=== PATIENT | female | born 1955 | race Caucasian/White ===

== ENCOUNTER → 2017-05-01 | Outpatient (CLI) | payer MEDICARE, BC ==
[~2017-05-01] MED LIST: CONTRAST GIVEN MC PRN; IOHEXOL 300 MG/ML 75 ML VIAL. IV ONE
--- NOTE | 2017-05-01 15:13 | RAD ---
Examination: CT angiogram of the chest History: History of shortness of breath, palpitations. Comparison: None available Technique: Axial CT and radiographic images were performed with IV contrast. Coronal and sagittal 3-D MIP reformats are performed PQRS Compliance Statement: One or more of the following individualized dose reduction techniques were utilized for this examination: 1. Automated exposure control 2. Adjustment of the mA and/or kV according to patient size 3. Use of iterative reconstruction technique Findings: The caliber of the aorta grossly appears unremarkable. The heart size grossly appears unremarkable. No evidence of filling defect identified in the main pulmonary arterial trunk and right and left main pulmonary arteries and the visualized lobar, segmental branches of the pulmonary arteries. The lungs are clear. There is diffuse decreased attenuation noted throughout the liver likely hepatic steatosis. Cholecystectomy clips are identified. The visualized right adrenal gland grossly appears unremarkable. In the left adrenal gland, there is a 1.7 cm hypodensity measuring 10 Hounsfield units probably adrenal adenoma. No evidence of lytic bony destructive lesion. Left-sided cardiac pacer identified. Impression: 1. No evidence of pulmonary embolism. 2. The lungs are clear. 3. Hepatic steatosis. 4. 1.7 cm left adrenal hypodensity probably adenoma.
== END | disposition home or self-care (01) ==
LOC: CT 14:40
PROVIDERS: ATTEND Nurse Practitioner Family
DX: R00.2 Palpitations (principal); K76.0 Fatty (change of) liver, not elsewhere classified; R06.00 Dyspnea, unspecified
CPT/HCPCS: 71275; Q9967